=== PATIENT | male | born 1970 | race American Indian/Alaskan Native ===

== ENCOUNTER 2019-06-15 19:22 | Emergency (ER) | payer MEDICAID ==
[~2019-06-15] VITALS: Ht 167.6 cm; Wt 115.7 kg
[2019-06-15 19:22] VITALS: BP 136/82
--- NOTE | 2019-06-15 19:22 | NUR ---
TO BED # 04 AMBULATORY
--- NOTE | 2019-06-15 19:38 | NUR ---
EMT PERFORMING EKG AT BEDSIDE.
[2019-06-15] MEDS ORDERED: ASPIRIN 81 MG TAB.CHEW PO ONE (19:40)
[2019-06-15] MEDS ORDERED: NACL 0.9% 1,000 ML IV ONE (19:40)
--- NOTE | 2019-06-15 19:40 | NUR ---
DR. NUNEZ EVALUATING AT BEDSIDE.
--- NOTE | 2019-06-15 20:06 | NUR ---
ATTEMPTED IV START AND BLOOD DRAW X2 UNSUCCESSFULLY. PT BECAME UPSET AND STATED "I DON'T WANT TO GET POKED AGAIN. JUST DISCHARGE ME." EXPLAINED IMPORTANCE LAB TESTING. PT REFUSING TO BE POKED AGAIN. DR. NUNEZ MADE AWARE. EXPLAINED TO PT HE MUST SIGN AMA.
--- NOTE | 2019-06-15 20:12 | NUR ---
Patient does not wish to proceed with medical care recommended by Dr. Lassiter. Patient given information related to possible complications, up to and including , which could occur as a result of leaving hospital at this time. Patient verbalizes understanding of risks involved leaving against medical advice. Patient has signed AMA form.
== END 2019-06-15 20:12 | disposition left against medical advice (07) ==
LOC: MED 19:22
DX: R07.81 Pleurodynia (principal); R61 Generalized hyperhidrosis; Z71.6 Tobacco abuse counseling; F17.200 Nicotine dependence, unspecified, uncomplicated; Z98.890 Other specified postprocedural states
CPT/HCPCS: 93005; 99283

== ENCOUNTER 2019-09-04 19:54 | Emergency (ER) | payer MEDICAID, OTHER ==
[~2019-09-04] VITALS: Ht 170.2 cm; Wt 127.0 kg
[2019-09-04 20:34] VITALS: BP 132/82
--- NOTE | 2019-09-04 20:41 | NUR ---
PT AMBULATED TO LOBBY WITH VSS.
[2019-09-04 21:32] LABS: BASOPHILS # (AUTO) 0.1 K/uL (0.00-0.22); BASOPHILS % (AUTO) 0.9 % (0.0-2.0); EOSINOPHILS # (AUTO) 0.2 K/uL (0-0.4); HEMOGLOBIN 14.6 g/dL (12.0-18.0); LYMPHOCYTES # (AUTO) 2.1 K/uL (2.0-11.5); LYMPHOCYTES % (AUTO) 25.4 % (20.5-51.1); MEAN CORPUSCULAR HEMOGLOBIN 27 pg (27-31); MEAN CORPUSCULAR HGB CONC 33 g/dL (33-37); MEAN CORPUSCULAR VOLUME 82.2 fL (80-94); MONOCYTES # (AUTO) 0.9 K/uL (0.8-1.0); MONOCYTES % (AUTO) 11.3 % (1.7-9.3); NEUTROPHILS # (AUTO) 4.9 K/uL (1.8-7.7); NEUTROPHILS % (AUTO) 60.4 % (42.2-75.2); PLATELET COUNT (AUTO) 231 K/uL (140-450); RED BLOOD CELL COUNT(AUTO) 5.35 MIL/uL (4.20-6.10); RED CELL DISTRIBUTION WIDTH 15.7 % (11.6-13.7); WHITE BLOOD COUNT (AUTO) 8.2 K/uL (4.8-10.8)
--- NOTE | 2019-09-04 21:53 | NUR ---
PT TO ER BED 4
[2019-09-04 21:58] LABS: ALBUMIN 3.8 g/dL (3.4-5.0); ANION GAP 16.4 (8-16); CARBON DIOXIDE 24.6 mmol/L (21-32); TOTAL BILIRUBIN 0.4 mg/dL (0.0-1.0)
--- NOTE | 2019-09-04 21:58 | NUR ---
49 Y/O M PRESENTS TO ER C/O RIGHT RIB PAIN X 3 DAYS. DENIES TRAUMA/INJURY. CURRENT PAIN LEVEL 0/10, PAIN COMES AND GOES, SHARP PAIN. DENIES N/V/D. DENIES URIANRY SYMPTOMS. HOB ELEVATED, BED IN LOWEST POSITION, BED RAIL UP X1. WAITING FOR ERMD TO EVALUATE PT. ALLERGIES: NKA MED HX: HERNIA, KIDNEY REMOVAL 1989.
[2019-09-04 23:06] VITALS: BP 132/82
--- NOTE | 2019-09-04 23:06 | NUR ---
Patient discharged with v/s stable. Written and verbal after care instructions given and explained. pt encouraged to take Motrin for the pain as needed. Patient alert, oriented and verbalized understanding of instructions. Ambulatory with steady gait. All questions addressed prior to discharge. ID band removed. Patient advised to follow up with PMD. Rx of motrin 800mg was given. Patient educated on indication of medication including possible reaction and side effects. Opportunity to ask questions provided and answered.
== END 2019-09-04 23:06 | disposition home or self-care (01) ==
LOC: MED 19:54
DX: R10.11 Right upper quadrant pain (principal); Z90.49 Acquired absence of other specified parts of digestive tract; Z90.5 Acquired absence of kidney
CPT/HCPCS: 36415; 80053; 83690; 85025; 99284

== ENCOUNTER 2020-11-03 21:27 | Emergency (ER) | payer OTHER ==
[~2020-11-03] VITALS: Ht 167.6 cm; Wt 127.5 kg
[2020-11-03 21:30] VITALS: BP 130/67
--- NOTE | 2020-11-03 21:37 | NUR ---
PT AMBULATED TO BED 06, STEADY GAIT
--- NOTE | 2020-11-03 21:40 | NUR ---
50 Y/O MALE BIB SELF COMPLAINING OF INTERMITTENT PENILE PAIN 04/22. [id number]. PT HAVE BURNING SENSATION AND PAIN WHEN URINATING. PT ALSO COMPLAINS OF MOMENTS OF INCONTINENCE. REDNESS ANS SWELLING NOTED ON FORESKIN. MEDHX: ANXIETY NKA
--- NOTE | 2020-11-03 21:53 | NUR ---
JAY Ibanez at bedside for medical evaluation.
[2020-11-03] MEDS: NACL 0.9% 2,000 ML IV ONE (22:43)
--- NOTE | 2020-11-03 22:45 | NUR ---
IV ACCESS INSERTED ON NUHA G18. NS BOLUS STARTED. BLOOD SAMPLE SENT TO LAB.
[2020-11-03 22:51] LABS: APPEARANCE,URINE CLEAR (CLEAR); BILIRUBIN,URINE NEGATIVE (NEGATIVE); BLOOD, URINE 1+ (NEGATIVE); COLOR,URINE YELLOW (YELLOW); LEUKOCYTE ESTERASE ,URINE NEGATIVE (NEGATIVE); NITRITE, URINE NEGATIVE (NEGATIVE); UGLUCOSE 3+ (NEGATIVE)
[2020-11-03 23:10] LABS: CARBON DIOXIDE 24.9 mmol/L (21-32); CREATININE 1.3 mg/dL (0.6-1.3); POTASSIUM 3.9 mmol/L (3.5-5.1)
[2020-11-03] MEDS: INSULIN REGULAR, HUMAN 100 UNIT/ML VIAL SUBQ ONE (23:13)
[2020-11-03] MEDS: NACL 0.9% 1,000 ML IV ONE (23:56)
[2020-11-04 01:05] VITALS: BP 130/67
--- NOTE | 2020-11-04 01:05 | NUR ---
Patient discharged with v/s stable. Written and verbal after care instructions given and explained. Patient alert, oriented and verbalized understanding of instructions. Ambulatory with steady gait. All questions addressed prior to discharge. ID band removed. Patient advised to follow up with PMD. Rx of METFORMIN, CLOTRIMAZOLE, KEFLEX, PHENAZOPYRIDINE HYDROCHLORIDE given. Patient educated on indication of medication including possible reaction and side effects. Opportunity to ask questions provided and answered.
== END 2020-11-04 01:05 | disposition home or self-care (01) ==
LOC: MED 21:27
DX: N48.1 Balanitis (principal); E11.65 Type 2 diabetes mellitus with hyperglycemia; F41.9 Anxiety disorder, unspecified
CPT/HCPCS: 36415; 80048; 81003; 82948; 96360; 96361; 96372; 99283; J1815; J7030

== ENCOUNTER 2022-03-05 12:15 | Emergency (ER) | payer OTHER ==
[~2022-03-05] VITALS: Ht 170.2 cm; Wt 135.2 kg
[2022-03-05 12:17] VITALS: BP 159/84
--- NOTE | 2022-03-05 13:24 | NUR ---
PERFORMED EAR IRRIGATION WITH SALINE WATER AND HYDROGEN PEROXIDE MIX. ERMD NOTIFED.
[2022-03-05] MEDS ORDERED: CARB15DR61 OT (13:29)
--- NOTE | 2022-03-05 13:46 | NUR ---
Patient discharged with v/s stable. Written and verbal after care instructions FOR EAR IRRIGATION AND EARACHE given and explained. Patient alert, oriented and verbalized understanding of instructions. Ambulatory with steady gait. All questions addressed prior to discharge. ID band removed. Patient advised to follow up with PMD. Rx of CARBAMIDE PEROXIDE given. Opportunity to ask questions provided and answered.
--- NOTE | 2022-03-05 13:47 | NUR ---
The patient's care was reviewed and supervised by Precious Elizabeth RN.
== END 2022-03-05 13:47 | disposition home or self-care (01) ==
LOC: MED 12:15
DX: H61.23 Impacted cerumen, bilateral (principal); Z98.890 Other specified postprocedural states
CPT/HCPCS: 99282

== ENCOUNTER 2022-08-09 17:31 | Emergency (ER) | payer OTHER ==
[~2022-08-09] VITALS: Ht 170.2 cm; Wt 129.3 kg
[~2022-08-09 17:31] MED LIST: CARB15DR61 OT
[2022-08-09 17:41] VITALS: BP 160/100
--- NOTE | 2022-08-09 17:44 | NUR ---
PT AMBULATED TO ROOM 6
--- NOTE | 2022-08-09 17:53 | NUR ---
LAB AT BEDSIDE
--- NOTE | 2022-08-09 17:58 | NUR ---
52YO MALE PT C/O INTERMITTENT SHARP 8/10 RL ABDOMINAL PAIN XTHISMORNING. STATES PAIN AT MOST ON MOVEMENT W/ RADIATION TO R GROIN. DENIES TAKING MEDICATION FOR PAIN, N/V/D, CHEST PAIN OR SOB. ABDOMEN TENDER, NON DISTENDED, ACTIVE X4. NOTES S/S TO PREVIOUS HERNIA. PT AAOX4, RESPIRATIONS EVEN AND UNLABORED. HOB POSITIONED PER COMFORT. HX:HERNIA(2012) NKA
[2022-08-09 18:09] LABS: BASOPHILS # (AUTO) 0.1 K/uL (0.00-0.22); BASOPHILS % (AUTO) 0.9 % (0.0-2.0); EOSINOPHILS # (AUTO) 0.2 K/uL (0-0.4); EOSINOPHILS % (AUTO) 1.5 % (0.0-4.0); HEMATOCRIT 47.2 % (36-52); HEMOGLOBIN 16.1 g/dL (12.0-18.0); LYMPHOCYTES # (AUTO) 2.5 K/uL (2.0-11.5); LYMPHOCYTES % (AUTO) 21.5 % (20.5-51.1); MEAN CORPUSCULAR HEMOGLOBIN 28 pg (27-31); MEAN CORPUSCULAR HGB CONC 34 g/dL (33-37); MEAN CORPUSCULAR VOLUME 80.8 fL (80-94); MONOCYTES # (AUTO) 1.1 K/uL (0.8-1.0); MONOCYTES % (AUTO) 9.4 % (1.7-9.3); NEUTROPHILS # (AUTO) 7.7 K/uL (1.8-7.7); NEUTROPHILS % (AUTO) 66.7 % (42.2-75.2); PLATELET COUNT (AUTO) 243 K/uL (140-450); RED BLOOD CELL COUNT(AUTO) 5.84 MIL/uL (4.20-6.10); RED CELL DISTRIBUTION WIDTH 15.3 % (11.6-13.7); WHITE BLOOD COUNT (AUTO) 11.5 K/uL (4.8-10.8)
[2022-08-09 18:29] LABS: ALBUMIN 4.1 g/dL (3.4-5.0); ANION GAP 16.9 (8-16); CREATININE 1.1 mg/dL (0.6-1.3); POTASSIUM 3.9 mmol/L (3.5-5.1); TOTAL BILIRUBIN 0.7 mg/dL (0.0-1.0)
[2022-08-09] MEDS ORDERED: KETOROLAC 15 MG/ML VIAL IM ONE (18:45)
--- NOTE | 2022-08-09 18:55 | NUR ---
52/M PRESENTS TO ED WITH C/O 8/10 SHARP RLQ PAIN AND GRIND PAIN. PATIENT DENIES N/V/D, REPORTS PAIN WORSENS WITH MOVEMENT. ABDOMEN NON TENDED, DENIES TAKING MEDICATIION FOR SYMPTOMS, DENIES URINARY SYMPTOMS.
--- NOTE | 2022-08-09 19:18 | NUR ---
Note elissa in EDM - 08/09/22 at 1918 by PHSEP Patient discharged with v/s stable. Written and verbal after care instructions given and explained. Patient verbalized understanding. Ambulatory with by parent. All questions addressed prior to discharge. Advised to follow up with PMD.
--- NOTE | 2022-08-09 19:21 | NUR ---
REPORT GIVEN TO DANAY RN. TRANSFER OF CARE AT THIS TIME
--- NOTE | 2022-08-09 19:51 | NUR ---
Urine sample obtained and sent to lab.
--- NOTE | 2022-08-09 20:20 | NUR ---
Dr. Ibanez explained results and treatment plans.
[2022-08-09 20:53] LABS: BILIRUBIN,URINE 1+ (NEGATIVE); BLOOD, URINE NEGATIVE (NEGATIVE); COLOR,URINE YELLOW (YELLOW); LEUKOCYTE ESTERASE ,URINE NEGATIVE (NEGATIVE); NITRITE, URINE POSITIVE (NEGATIVE); PH,URINE 5.5 (5.0-9.0); UGLUCOSE TRACE (NEGATIVE)
[2022-08-09 20:57] LABS: APPEARANCE,URINE CLOUDY (CLEAR)
[2022-08-09 21:08] LABS: BARBITURATE, URINE NEGATIVE ng/ml (NEG <=200); BENZODIAZEPINE, URINE NEGATIVE ng/mL (NEG <=200); CANNABINOID, URINE NEGATIVE ng/mL (NEG <=50); COCAINE, URINE NEGATIVE ng/mL (NEG <=300); OPIATE, URINE NEGATIVE ng/mL (NEG <=2000); PHENCYCLIDINE SCREEN,URINE NEGATIVE ng/mL (NEG <=25)
[2022-08-09] MEDS ORDERED: NAPR-54 PO (21:32)
[2022-08-09 21:36] VITALS: BP 148/96
--- NOTE | 2022-08-09 21:36 | NUR ---
Patient discharged with v/s stable. Written and verbal after care instructions given and explained for Ventral Hernia and Abdominal pain. Patient alert, oriented and verbalized understanding of instructions. Ambulatory with steady gait. All questions addressed prior to discharge. ID band removed. Patient advised to follow up with PMD. Rx of Naproxen given. Patient educated on indication of medication including possible reaction and side effects. Opportunity to ask questions provided and answered.
== END 2022-08-09 21:36 | disposition home or self-care (01) ==
LOC: MED 17:31
DX: R10.31 Right lower quadrant pain (principal)
CPT/HCPCS: 36415; 74176; 80053; 80305; 81003; 82150; 83690; 85025; 96372; 99284; J1885